=== PATIENT | female | born 1950 | race Caucasian/White ===

== ENCOUNTER 2017-03-15 05:54 | Day surgery (SDC) | payer OTHER ==
[~2017-03-15 05:54] MED LIST: BETIMOL5 ML OP; NITROFURANTOIN100 MG; [UNRECOGNIZED DRUG - OTHER]
[2017-03-15] MEDS ORDERED: CIPRO500 MG/5 M PO (12:00)
[2017-03-15] MEDS ORDERED: DICLOFENAC POTA50 MG PO (12:00)
== END 2017-03-15 14:40 | disposition home or self-care (01) ==
LOC: CIR.AMB 05:54
DX: S52.552A Other extraarticular fracture of lower end of left radius, initial encounter for closed fracture (principal); M81.0 Age-related osteoporosis without current pathological fracture
CPT/HCPCS: 25609; 20902; C1776

== ENCOUNTER 2018-08-07 07:09 | Emergency (ER) | payer OTHER ==
[~2018-08-07] VITALS: Ht 165.1 cm; Wt 84.8 kg
[~2018-08-07 07:09] MED LIST changes: +CIPRO500 MG/5 M PO; +DICLOFENAC POTA50 MG PO
== END 2018-08-07 13:15 | disposition home or self-care (01) ==
LOC: ER 07:09
DX: B34.9 Viral infection, unspecified (principal); J11.1 Influenza due to unidentified influenza virus with other respiratory manifestations

== ENCOUNTER 2021-01-27 06:00 | Inpatient (IN) | payer OTHER ==
[2021-01-28] MEDS ORDERED: TIMOLOL MALEATE5 M3 (09:15)
[2021-01-28] MEDS ORDERED: MAXIMUM D3325 MCG (09:16)
[2021-01-29] MEDS ORDERED: ELIQUIS2.5 MG PO (16:58)
[2021-01-29] MEDS ORDERED: PERCOCET 5-3251 EACH PO (16:58)
[2021-01-29] MEDS ORDERED: CIPROFLOXACIN500 MG PO (16:58)
== END 2021-01-29 19:58 | DRG 470 ==
LOC: CIR.AMB 06:00 → O/R 11:27 → SURG 11:27
PROVIDERS: ADMIT Orthopaedic Surgery; ATTEND Orthopaedic Surgery
PROC: 0SRD0J9 Replacement of Left Knee Joint with Synthetic Substitute, Cemented, Open Approach (ICD-10-PCS; principal; 2021-01-27 10:00)
DX: M17.12 Unilateral primary osteoarthritis, left knee (principal); D62 Acute posthemorrhagic anemia; M65.862 Other synovitis and tenosynovitis, left lower leg; M81.0 Age-related osteoporosis without current pathological fracture; M22.12 Recurrent subluxation of patella, left knee; Z20.822 Contact with and (suspected) exposure to COVID-19